=== PATIENT | male | born 1955 | race Caucasian/White ===

== ENCOUNTER 2023-07-27 20:20 | Inpatient (IN) | payer MEDICARE, OTHER, SELFPAY ==
[2023-07-27] VITALS (14 sets, daily range): BP systolic 116–144; BP diastolic 57–113
[2023-07-27] MEDS: CARDIZEM 10 MG IV (12:31)
--- NOTE | 2023-07-27 12:38 | ED.GENMED ---
History of Present Illness
<Dione Toussaint PA-C - Last Filed: 07/27/23 17:00>
General
Chief Complaint: Heart Rate Problem
Source: patient
Exam Limitations: none
Time Seen by Provider: 07/27/23 12:24
Nursing documentation reviewed up to this point in time: agreed with
Travel History
Have you had any contact with someone who has COVID-19?: No
Do you have any symptoms of coronavirus? Fever > 100 degrees, chills, cough, shortness of breath, sore throat, loss of taste or smell, muscle aches, or headache?: No
History of Present Illness
History of Present Illness:
67-year-old male with a past medical history of sleep apnea, A-fib, CAD, hypertension, hyperlipidemia presenting to the emergency department today with palpitations and dizziness that started at around 11 AM today. Patient states that he is
starting to feel the symptoms and look down at her Apple Watch and noticed that his heart rate was around 170. Patient states that he only went into A-fib once to his knowledge around 6 years ago and they were planning for cardioversion however he
converted on his own. Patient states that when he started to feel his symptoms, he took a nitro. He has no chest pain, no shortness of breath. He is not on any anticoagulation but he does take aspirin and clopidogrel. Of note, he had a UroLift
procedure done 3 days ago and as a result is currently off of his clopidogrel and aspirin. He still has hematuria remaining from the surgery. Also has some mild dysuria. Denies any fevers or chills, shortness of breath.
Past History
<Dione Toussaint PA-C - Last Filed: 07/27/23 17:00>
Past History
ED Past Medical History: CAD, HTN, Hypercholesterolemia, [place] (Non-STEMI March 2022) and Other (Chronic hard of hearing, cochlear implants)
ED Past Surgical History: Cardiac (PTCA with stents), Cholecystectomy and Other (Cochlear implant)
Social History
Tobacco: Non-smoker
Alcohol: None
Drug: None
Personal:
Living: with family
Employment: Retired
Family History
Family History: Other (Noncontributory)
Review of Systems
<Dione Toussaint PA-C - Last Filed: 07/27/23 17:00>
Review of Systems
All Other Systems: ROS reviewed and negative except as documented in HPI and ROS
Phy Exam
<Dione Toussaint PA-C - Last Filed: 07/27/23 17:00>
Physical Exam
Physical Exam:
General: Patient is well-appearing in no acute distress
Skin: Warm and dry, no rashes or lesions
Head: Normocephalic, atraumatic
Cardiac: Heart is irregularly irregular, no murmurs, rubs, or gallops
Peripheral Vascular: No longer extremity edema, 2+ DP pulses b/l
Pulm: Normal respiratory effort, no wheezes, rales, or rhonchi
Abdomen: No abdominal tenderness to palpation, no pelvic pain to palpation
Neuro: AAOx3, CN II-XII intact.
Scores
<Dione Toussaint PA-C - Last Filed: 07/27/23 17:00>
[id number] Score for Afib Stroke Risk
Age in Years (65=0, 65-74=1, >/=75=2): 65-74
Sex (Female=+1): Male
Congestive Heart Failure History (Yes=+1): No
Hypertension History (Yes=+1): Yes
Stroke/TIA/Thromboembolism History (Yes=+2): No
Vascular Disease History (Yes=+1): Yes
Diabetes Mellitus (Yes=+1): No
Score: 3
Anticoagulation Recommendations: Recommend anticoagulation (as validated in nonvalvular fib)
PE Wells Score
Symptoms of DVT: No
No alternative diagnosis better explains the illness: No
Tachycardia with pulse > 100: Yes
Immobilization (>=3 days) or surgery within previous 4 weeks: Yes
Prior history of DVT or pulmonary embolism: No
Presence of hemoptysis: No
Presence of malignancy: No
Pulmonary Embolism Risk Score: 3.0
Probability of PE: Pt is moderate risk
Course
<Dione Toussaint PA-C - Last Filed: 07/27/23 17:00>
Orders/Labs/Results
Orders:
Orders
07/27/23
Electrocardiogram (*1) Stat
Comment: DONE MR
07/27/23 11:30
EKG [Electrocardiogram (*1)] Urgent
Reason for Study: Chest Pain
07/27/23 11:31
EKG- Treatment ONCE
07/27/23 12:16
Complete Blood Count/With Diff Urgent
Comprehensive Metabolic Panel Urgent
Magnesium Urgent
TSH Reflex To Free T4 Urgent
Troponin I Urgent
07/27/23 12:25
Diltiazem HCl [Cardizem] 25 mg .ROUTE .STK-MED ONE
07/27/23 12:31
Diltiazem HCl [Cardizem] 10 mg IV NOW STA
07/27/23 12:45
Diltiazem 125 mg/125 ml Nss [Cardizem] 125 mg in 125 ml IV PER PROTOCOL
Initial dose in mg/hr, then titrate:: 5
Titrate to keep:: Heart rate 80-100 bpm
Titrate by mg/hr:: 5 mg/hr
Frequency of titrations (minutes):: 15
Maximum dose in mg/hr:: 15
07/27/23 13:02
Urinalysis Reflex To Culture Urgent
Date Specimen was Collected: 07/27/23
Time Specimen was Collected: 12:50
Urine Microscopic Reflex Cult Urgent
07/28/23 06:00
Echo 2D MMode Color/Doppler IN AM
Reason for Study: afib
Abnormal Lab Results
07/27/23 07/27/23
12:16 13:02
MCV 78.1 L fL
(80.0-94.0)
Absolute Lymphs (auto) 0.8 L 10^3/uL
(1.2-3.4)
Neutrophils % 78.9 H %
(42.2-75.2)
Lymphocytes % 10.6 L %
(20.5-51.1)
BUN 21 H mg/dl
(9-20)
Glucose 115 H mg/dl
(70-99)
Ur Occult Blood Reflex 4+ A
(Negative)
Leukocyte Esterase Rfl Trace A
(Negative)
Urine RBC >100 A /HPF
(0-2)
Urine Bacteria (Reflex) Few A
(Negative)
07/27/23 12:16
07/27/23 12:16
Vital Signs
Initial and Last Documented VS:
Initial Vital Signs
Temp Pulse Resp BP Pulse Ox
98.7 F 131 21 120/104 96
07/27/23 11:36 07/27/23 11:36 07/27/23 11:36 07/27/23 11:36 07/27/23 11:36
Last Documented Vital Signs
Temp Pulse Resp BP Pulse Ox
98.7 F 87 23 133/79 94
07/27/23 11:36 07/27/23 16:45 07/27/23 16:45 07/27/23 16:45 07/27/23 16:45
<Jordy Garcia, DO - Last Filed: 07/27/23 12:58>
Orders/Labs/Results
Orders:
Orders
07/27/23
Electrocardiogram (*1) Stat
Comment: DONE MR
07/27/23 11:30
EKG [Electrocardiogram (*1)] Urgent
Reason for Study: Chest Pain
07/27/23 11:31
EKG- Treatment ONCE
07/27/23 12:16
Complete Blood Count/With Diff Urgent
Comprehensive Metabolic Panel Urgent
Magnesium Urgent
TSH Reflex To Free T4 Urgent
Troponin I Urgent
07/27/23 12:25
Diltiazem HCl [Cardizem] 25 mg .ROUTE .STK-MED ONE
07/27/23 12:31
Diltiazem HCl [Cardizem] 10 mg IV NOW STA
07/27/23 12:45
Diltiazem 125 mg/125 ml Nss [Cardizem] 125 mg in 125 ml IV PER PROTOCOL
Initial dose in mg/hr, then titrate:: 5
Titrate to keep:: Heart rate 80-100 bpm
Titrate by mg/hr:: 5 mg/hr
Frequency of titrations (minutes):: 15
Maximum dose in mg/hr:: 15
07/27/23 13:02
Urinalysis Reflex To Culture Urgent
Date Specimen was Collected: 07/27/23
Time Specimen was Collected: 12:50
Urine Microscopic Reflex Cult Urgent
07/28/23 06:00
Echo 2D MMode Color/Doppler IN AM
Reason for Study: afib
Abnormal Lab Results
07/27/23 07/27/23
12:16 13:02
MCV 78.1 L fL
(80.0-94.0)
Absolute Lymphs (auto) 0.8 L 10^3/uL
(1.2-3.4)
Neutrophils % 78.9 H %
(42.2-75.2)
Lymphocytes % 10.6 L %
(20.5-51.1)
BUN 21 H mg/dl
(9-20)
Glucose 115 H mg/dl
(70-99)
Ur Occult Blood Reflex 4+ A
(Negative)
Leukocyte Esterase Rfl Trace A
(Negative)
Urine RBC >100 A /HPF
(0-2)
Urine Bacteria (Reflex) Few A
(Negative)
07/27/23 12:16
07/27/23 12:16
Vital Signs
Initial and Last Documented VS:
Initial Vital Signs
Temp Pulse Resp BP Pulse Ox
98.7 F 131 21 120/104 96
07/27/23 11:36 07/27/23 11:36 07/27/23 11:36 07/27/23 11:36 07/27/23 11:36
Last Documented Vital Signs
Temp Pulse Resp BP Pulse Ox
98.7 F 87 23 133/79 94
07/27/23 11:36 07/27/23 16:45 07/27/23 16:45 07/27/23 16:45 07/27/23 16:45
<Dione Toussaint PA-C - Last Filed: 07/27/23 17:00>
MDM/Problems Addressed
Differential Diagnosis Includes:
Differentials include A-fib, SVT, atrial flutter, sinus tachycardia, ACS
MDM/Problems Addressed:
palpitations
dizziness
Chronic conditions affecting care: HTN, CAD and Arrhythmia
Acute Exacerbation and/or Progression of Chronic Illness: HTN, CAD and Arrhythmia
<Dione Toussaint PA-C - Last Filed: 07/27/23 17:00>
*Pulse Oximetry
Patient hypoxic: no
*EKG
Interpreted by ED Provider?: Yes
EKG Intrepretation Date: 07/27/23
Interpretation: abnormal
Comparison EKG: changes noted
Heart Rate: 130
Rate: tachycardiac
Rhythm: a-fib (afib vs SVT)
[place]: normal axis
Interval: normal NM interval
Ischemia: non-specific ST changes
*[employer] Interpretation
Rate: tachycardiac
Interpretation: normal
Heart Rate: 104
Rhythm: a-fib
*Critical Care Note
Total Time (30-74mins, 75-104mins- exclusive of procedures): Not Applicable
Data Reviewed
Review of Other/Old Records Reveals: Records (reviewed ER physician documentation from 01/13/2023) and Discharge Summary (reviewed discharge summary from 04/13/2022)
Source: patient
Prescriptions/Medications Considered But Not Given:
considered cardioversion however patient has hematuria from recent surgery and not candidate for anticoagulation
<Dione Toussaint PA-C - Last Filed: 07/27/23 17:00>
Patient Management
Escalation/DeEscalation of care consider admission/obs:
67-year-old male with a past medical history of sleep apnea, A-fib, CAD, hypertension, hyperlipidemia presenting to the emergency department today with palpitations and dizziness that started at around 11 AM today. Patient found to be in rapid afib
upon arrival. Heart rate in the 140s. Patient given dose of diltazem which brought his heart rate down to the low 100s. Patient started on a diltiazem drip, cardiology consulted. Patient not candidate for cardioversion/anticoagulation at this time
due to hematuria and recent surgery. Patient will be admitted under medicine and will be continued to be seen by cardiology consult
ED Attending Note
<Dione Toussaint PA-C - Last Filed: 07/27/23 17:00>
-
Portions of this chart may have been created with voice recognition software.� Occasional wrong word or��sound alike� substitutions may have occurred due to the inherent limitations of voice recognition software.
<Jordy Garcia DO - Last Filed: 07/27/23 12:58>
ED Attending Note
Patient seen and examined by attending physician: Yes
I performed the substantive portion of visit, reviewed & personally made and approve the management plan that is documented in note by myself or MOE.: Yes
ED Attending Note:
Seen with SU examined independently 67-year-old male CAD followed at an outside hospital had 1 prior episode of A-fib not on anticoagulant, recent UroLift procedure, antiplatelets were held, today felt fast heart rate palpitations with his Apple
Watch heart rate was in the 170s been here he looks like he is in A-fib with rapid ventricular spots is having hematuria, he is afebrile, looks well responded to IV Cardizem
Ideally we will try to get him out of the rhythm, as he is modestly symptomatic is not obviously infected, anticoagulation may be problematic with recent urologic procedure
Discharge Plan
Departure
Patient Disposition: Admit
Date of Disposition: 07/27/23
Time of Disposition: 16:43
Presentation/result/management discussed w/ accepting MD/DO: Hospitalist
Patient with high blood pressure during this ER visit?: No
Condition: Fair
Discharge Problem:
Atrial fibrillation, rapid
Prescriptions:
No Action
latanoprost 0.005 % Drops
1 drp BOTH EYES HS
pantoprazole 40 mg Tablet,Delayed Release (Dr/Ec)
40 mg PO DAILY PRN (Reason: heartburn/stomach issues)
rosuvastatin 40 mg Tablet
40 mg PO HS
aspirin 81 mg Tablet,Delayed Release (Dr/Ec)
81 mg PO DAILY
Patient Comments:
07/27/2023, per pt., he stopped taking this med. roughly 6 days ago because of his procedure.
clopidogrel [clopidogrel] 75 mg tablet
75 mg PO DAILY Qty: 90 10RF
Patient Comments:
07/27/2023, per pt., he stopped taking this med. roughly 6 days ago because of his procedure.
losartan 50 mg Tablet
50 mg PO DAILY
metoprolol succinate 50 mg Tablet Extended Release 24 Hr
50 mg PO DAILY
Theragen Tablet
1 tab PO NOON
Patient Comments:
07/27/2023, per pt., he stopped taking this vitamin roughly 6 days ago because of his procedure.
ascorbic acid (vitamin C) [Vitamin C] 500 mg Tablet
500 mg PO NOON
Patient Comments:
07/27/2023, per pt., he stopped taking this vitamin roughly 6 days ago because of his procedure.
tamsulosin 0.4 mg Capsule
0.4 mg PO QPM
vitamin B complex [Super B Complex] Tablet
1 tab PO NOON
Patient Comments:
07/27/2023, per pt., he stopped taking this vitamin roughly 6 days ago because of his procedure.
magnesium 200 mg Tablet
200 mg PO NOON
hydrochlorothiazide 12.5 mg Tablet
12.5 mg PO DAILY
Fish Oil 600 mg capsule
2 cap PO BID
Patient Comments:
07/27/2023, per pt., he stopped taking this vitamin roughly 6 days ago because of his procedure.
Vitamin D3-K2
1 tab PO NOON
nitroglycerin
1 tab PO [id number] PRN (Reason: chest pain)
Patient Comments:
07/27/2023, pt. does not know what strength of nitroglycerin he took today. Could not find in pharmacy fill or ECW.
Interventions
Interventions:
*Risk Screen - Suicide Last Done: 07/27/23 11:39
*General Assessment Last Done: 07/27/23 11:39
*Neglect/Abuse Screening Last Done: 07/27/23 11:39
ED- Fall Risk Assessment Last Done: 07/27/23 12:13
*ED COVID-19 Vaccine History Last Done: 07/27/23 11:39
ED- Cardiac Assessment Last Done: 07/27/23 12:13
ED- Pulmonary Assessment Last Done: 07/27/23 12:13
[2023-07-27 12:42] LABS: % Basophils 0.6 % (0-2); % Eosinophils 1.3 % (0-6); % Immature Granulocytes 0.4 % (0-0.5); % Lymphocytes 10.6 % (20.5-51.1); % Monocytes 8.2 % (1.7-9.3); % Neutrophils 78.9 % (42.2-75.2); Absolute Basophils 0.1 10^3/uL (0-0.2); Absolute Eosinophils 0.1 10^3/uL (0-0.7); Absolute Lymphocytes 0.8 10^3/uL (1.2-3.4); Absolute Monocytes 0.6 10^3/uL (0.1-0.6); Absolute Neutrophils 6.1 10^3/uL (1.4-6.5); Hemoglobin 16.2 g/dL (13.0-18.0); Mean Corpuscular Hgb 28.1 pg (27.0-31.0); Mean Corpuscular Volume 78.1 fL (80.0-94.0); Mean Platelet Volume 10.1 fL (7.4-10.4); Nucleated Red Blood Cells % 0 % (-); Platelet Count 184 10^3/uL (130-400); Red Blood Cell Count 5.76 10^6/uL (4.70-6.10); Red Cell Dist. Width 13.2 % (11.5-14.5); White Blood Cell Count 7.8 10^3/uL (4.8-10.8)
[2023-07-27 12:50] LABS: ALT (SGPT) 29 U/L (0-50); AST (SGOT) 28 U/L (17-59); Albumin 4.3 g/dl (3.5-5.0); Alkaline Phosphatase 108 U/L (38-126); Blood Urea Nitrogen 21 mg/dl (9-20); Calcium 9.2 mg/dl (8.4-10.2); Carbon Dioxide 24 mmol/L (22-30); Chloride 105 mmol/L (98-107); Glucose 115 mg/dl (70-99); Magnesium 1.8 mg/dl (1.6-2.3); Potassium 3.7 mmol/L (3.5-5.1); Sodium 135 mmol/L (135-145); Total Bilirubin 0.9 mg/dl (0.2-1.3); Total Protein 6.8 g/dl (6.3-8.2); eGFR > 60.00
[2023-07-27] MEDS: CARDIZEM 125 IV (12:50)
[2023-07-27 12:57] LABS: Troponin I < 0.012 ng/ml
[2023-07-27 13:18] LABS: TSH Reflex To Free T4 2.28 uIU/ml (0.47-4.68)
[2023-07-27 13:19] LABS: Urine Albumin Trace (Neg - Trace); Urine Bilirubin Negative (Negative); Urine Character Slightly Cloudy (Clear); Urine Color Straw; Urine Glucose Negative (Negative); Urine Ketone Negative (Negative); Urine Leukocyte Trace (Negative); Urine Nitrite Negative (Negative); Urine Occult Blood 4+ (Negative); Urine Specific Gravity 1.005 (<1.030); Urine Urobilinogen Negative (Neg - 1+)
[2023-07-27 13:39] LABS: Urine Squamous Cell 0-2 /LPF (Few)
[2023-07-27 13:40] LABS: Urine Red Blood Cell >100 /HPF (0-2)
[2023-07-27 13:41] LABS: Urine Bacteria Few (Negative)
--- NOTE | 2023-07-27 15:39 | CON.CAR ---
Addendum entered and electronically signed by Abdulaziz Gillette MD 07/27/23 17:18:
I saw and examined the patient.
The ACADEMIC ADVISING DIRECTOR's note was reviewed and I agree with the note.
Comment: Highly symptomatic AFib. Hx of Paroxysmal AFib not on OAT but on DAPT after last PCI 01/2022. [id number] is 3. If no furhter urologic bleeding then I think it is reasonable to start Eliquis w/o antiplatelet meds (has not restarted, has
been on hold since before Urolift procedure done on Tuesday. If no bleeding for 24 hrs on Eliquis the the next day (TuesdayJul 28) we can then proceed to SHARONA/DCCV. His outpt electronics parts sales representative is with [facility].
Original Note:
Consultation
Consultation Request
Date/Time Consultation Requested: 07/27/23 1453
Date/Time Consultation Performed: 07/27/23 1530
Requesting Provider: Dione Toussaint
Performing Provider: Madelaine ROSARIO for Dr. Gillette
Reason for Consultation: AFIB
Medical History
-
Chief Complaint: light-headedness
History of Present Illness:
67 y/o male with hx one episode of AFIB 6 years ago (at either [facility] or [facility]) and he is not on OAC- details unclear- he did not require CV or intervention, CAD with stenting (most recent RCA 2021), HTN, HLD, BPH, sleep apnea (formerly
on CPAP, but lost weight and got nose surgery) who is here for evaluation of AFIB with RVR that per watch and symptoms started around 1030 AM after eating. He developed light-headedness and his watch that normally reads HR in 60's showed HR up to
170's. He took nitro, though he wasn't having any CP or SOB, then called a neighbor who brought him in. He is seen to have AFIB with RVR and is on a diltiazem drip. His electronics parts sales representative is Dr. Sharpe of [facility] cardiology. Importantly, patient
had a UroLift procedure on Tuesday and had hematuria, which has improved. He had some this AM, but most recent urine this afternoon was clear yellow urine. He has been off his DAPT, with plans to resume tomorrow. He is in no distress at the time of
my assessment and is here with his donor recruitment manager.
Past Medical History
Past Medical History: Arrhythmias (single episode AFIB 6 years ago), CAD, HTN, Hypercholesterolemia and Other (sleep apnea, BPH)
Social History
Tobacco: Non-Smoker
Alcohol: Occasional (rarely)
Family History
Family History: Early CAD
Allergies / Home Medications
Allergy/AdvReac Type Severity Reaction Status Date / Time
No Known Allergies Allergy Verified 07/27/23 11:41
Medication Instructions Recorded Confirmed Type
latanoprost 0.005 % eye drops 1 drp BOTH EYES HS Eye condition 03/18/22 07/27/23 History
pantoprazole 40 mg tablet,delayed 40 mg PO DAILY PRN 03/18/22 07/27/23 History
release heartburn/stomach issues
rosuvastatin 40 mg tablet 40 mg PO HS High cholesterol 03/18/22 07/27/23 History
aspirin 81 mg tablet,delayed 81 mg PO DAILY Blood clot 04/12/22 07/27/23 History
release prevention/tx
clopidogrel 75 mg tablet 75 mg PO DAILY #90 tabs 04/13/22 07/27/23 Rx
Fish Oil 2 cap PO BID 07/27/23 07/27/23 History
Vitamin D3-K2 1 tab PO NOON 07/27/23 07/27/23 History
ascorbic acid (vitamin C) 500 mg 500 mg PO NOON 07/27/23 07/27/23 History
tablet (Vitamin C)
hydrochlorothiazide 12.5 mg tablet 12.5 mg PO DAILY 07/27/23 07/27/23 History
losartan 50 mg tablet 50 mg PO DAILY 07/27/23 07/27/23 History
magnesium 200 mg tablet 200 mg PO NOON 07/27/23 07/27/23 History
metoprolol succinate 50 mg 50 mg PO DAILY 07/27/23 07/27/23 History
tablet,extended release 24 hr
nitroglycerin 1 tab PO [id number] PRN chest pain 07/27/23 07/27/23 History
tamsulosin 0.4 mg capsule 0.4 mg PO QPM 07/27/23 07/27/23 History
therapeutic multivitamin 1 tab PO NOON 07/27/23 07/27/23 History
vitamin B complex 1 tab PO NOON 07/27/23 07/27/23 History
Review of Systems
-
History Source: Patient
All other systems: Negative unless noted
Neurological: Other (light-headedness)
Physical Exam
Vital Signs
Temp Pulse Resp BP Pulse Ox
98.7 F 109 17 122/75 96
07/27/23 11:36 07/27/23 15:30 07/27/23 15:30 07/27/23 15:15 07/27/23 15:30
Lab Results
07/27/23 12:16
07/27/23 12:16
Troponin I < 0.012 ng/ml 07/27/23 12:16
Physical Exam
General: Well Developed, Well Nourished and No Apparent Distress
HEENT: Normocephalic and Anicteric
Respiratory: Clear and Non Labored Respirations
Cardiac: Irregular Rhythm
Musculoskeletal: No Edema
Skin: Warm and Dry
Neuro: AO x 3
Psych: Calm
Impression / Plan
-
AFIB with RVR: type unknown, though sounds like it started today at 1030
-rates better on diltiazem drip- continue- this requires intensive monitoring
-reports hx 6 years ago at OSH, not requiring intervention and he was not on OAC, but details unclear
-[id number] score is 3 for HTN, age, CAD. Recommend Eliquis 5 mg PO BID once clear that he is not bleeding- likely start tomorrow if no more hematuria. Then if no bleeding on Eliquis tomorrow and if still in AFIB, consider SHARONA/CV on Tuesday.
-TSH normal
-update echo this admit
-follow telemetry
CAD with history of multiple stents:
-most recent RCA 2021
-on DAPT as OP, held for procedure as noted
-now with AFIB, would transition to Eliquis as above
HTN:
-monitor with diltiazem drip
Hx sleep apnea:
-he has been off CPAP since losing weight and getting surgery
-should have reassessment as OP
BPH:
-s/p UroLift Tuesday
-AP/OAC as above
Data Reviewed
-
EKG: Tracing Personally Visualized and interpreted (AFIB with RVR)
Medical Tests (Nuc Med, Echo etc): Report Reviewed by me (04/13/22: Normal biventricular size and systolic function without regional wall motion abnormality. Mild concentric left ventricular hypertrophy. No significant valvular disease. ) and
Other (cath 04/12/22: Right dominant circulation with patent stents in the circumflex leading into the second obtuse marginal, mild proximal LAD disease and a critical, 95% in-stent restenosis lesion in the ostial RCA leading into a severely
tortuous proximal right coronary, status post successful PCI)
Labs: Labs Reviewed by me
--- NOTE | 2023-07-27 18:33 | HPS.HSE ---
Family Physician
-
Family Physician: Bernie Obrien
Chief Complaint
-
palpiatations
History of Present Illness
67-year-old male past medical history of atrial fibrillation, CAD with stents, hypertension, sleep apnea, hyperlipidemia, hearing loss, prediabetic presenting with palpitations and dizziness starting around 11 AM today. He looked at his Apple Watch
and noticed that his heart rate was around 170. To his knowledge she only went into A-fib once around 6 years ago and they were planning cardioversion at that time however he converted on his own. Patient took a nitro when he started having
symptoms. He denies any chest pain or shortness of breath. He is not on anticoagulation but does normally take aspirin and Plavix.
He had a UroLift procedure 3 days ago and therefore is off of aspirin and clopidogrel which was supposed to be restarted a few days after surgery. He denies any fevers or chills or abdominal pain. He was having blood in his urine after the
surgery even today this has now resolved.
Rarely drinks alcohol. Denies smoking.
Medical History
Past Medical History
Past Medical History: Reports Other (atrial fibrillation, CAD with stents, hypertension, sleep apnea, hyperlipidemia, hearing loss, prediabetic)
Past Surgical History: Reports Other (Cardiac (PTCA with stents), Cholecystectomy and Other (Cochlear implant))
Social History
Tobacco: Non-smoker
Alcohol: Occasional
Drug: None
Family History
Family History: Not pertinent
Allergies / Home Medications
Allergies reflects when Allergies were last updated in [email or web address].
Home Medications with original date entered in [email or web address]
Allergy/Medication List:
Allergies
Allergy/AdvReac Type Severity Reaction Status Date / Time
No Known Allergies Allergy Verified 07/27/23 11:41
Home Medications
latanoprost 0.005 % eye drops 1 drp BOTH EYES HS Eye condition 03/18/22
pantoprazole 40 mg tablet,delayed release 40 mg PO DAILY PRN heartburn/stomach issues 03/18/22
rosuvastatin 40 mg tablet 40 mg PO HS High cholesterol 03/18/22
aspirin 81 mg tablet,delayed release 81 mg PO DAILY Blood clot prevention/tx 04/12/22
clopidogrel 75 mg tablet 75 mg PO DAILY #90 tabs 04/13/22
Fish Oil 2 cap PO BID 07/27/23
Vitamin D3-K2 1 tab PO NOON 07/27/23
ascorbic acid (vitamin C) 500 mg tablet (Vitamin C) 500 mg PO NOON 07/27/23
hydrochlorothiazide 12.5 mg tablet 12.5 mg PO DAILY 07/27/23
losartan 50 mg tablet 50 mg PO DAILY 07/27/23
magnesium 200 mg tablet 200 mg PO NOON 07/27/23
metoprolol succinate 50 mg tablet,extended release 24 hr 50 mg PO DAILY 07/27/23
nitroglycerin 1 tab PO [id number] PRN chest pain 07/27/23
tamsulosin 0.4 mg capsule 0.4 mg PO QPM 07/27/23
therapeutic multivitamin 1 tab PO NOON 07/27/23
vitamin B complex 1 tab PO NOON 07/27/23
Review of Systems
-
History Source: Patient
A 12 point ROS was completed and negative except as noted: Yes
Constitutional: Reports No Symptoms
EENT: Reports No Symptoms
Respiratory: Reports No Symptoms
Cardiac: Reports See HPI
Abdomen/GI: Reports No Symptoms
: Reports No Symptoms
Musculoskeletal: Reports No Symptoms
Skin: Reports No Symptoms
Neurological: Reports No Symptoms
Endocrine: Reports No Symptoms
Hematologic/Lymphatic: Reports No Symptoms
Psych: Reports No Symptoms
Physical Exam
Vital Signs
Vital Signs
Temp Pulse Resp BP Pulse Ox
98.7 F 92 11 135/87 95
07/27/23 11:36 07/27/23 18:15 07/27/23 18:15 07/27/23 18:15 07/27/23 18:15
Physical Exam
General: Well Developed, Well Nourished and No Apparent Distress
HEENT: NormoCephalic, Moist mucous membranes and Atraumatic
Respiratory: Clear
Cardiac: S1/S2 and Regular Rhythm; No Murmur or Rub
GI: Soft, Non Tender, Non Distended and Normal Bowel Sounds; No Organomegaly
Rectal: Deferred by Provider
Musculoskeletal: No Clubbing, No Cyanosis and No Edema
Skin: No Rash
Neuro: Nonfocal/grossly intact
Laboratory Results
-
07/27/23 12:16
07/27/23 12:16
Laboratory Results
Total Bilirubin 0.9 mg/dl (0.2-1.3) 07/27/23 12:16
AST 28 U/L (17-59) 07/27/23 12:16
ALT 29 U/L (0-50) 07/27/23 12:16
Alkaline Phosphatase 108 U/L (38-126) 07/27/23 12:16
Troponin I < 0.012 ng/ml 07/27/23 12:16
Data Reviewed
-
Lab Data: Labs Reviewed by me
Old Records: Reviewed
Impression/Plan
-
IMPRESSION:
PLAN:
# New recurrence of atrial fibrillation with RVR
-[id number] of 3
-Cardizem drip started
-Cardiology to start Eliquis tomorrow, and possibly consider SHARONA/cardioversion on Tuesday if no recurrent hematuria
-Continue metoprolol
CAD with history of stents
-Hold aspirin and Plavix
BPH
-Status post UroLift procedure 3 days ago
-Hematuria resolved
-Continue tamsulosin
Essential hypertension
-Continue hydrochlorothiazide, losartan
Sleep apnea
Prediabetes
Hyperlipidemia
-Continue statin
Hearing loss s/p cochlear implants
GERD
-Continue Protonix
Full code
DVT prophylaxis�SCDs
Regular diet
[2023-07-28] VITALS (20 sets, daily range): BP systolic 95–144; BP diastolic 56–94; BMI 24.0; BMI 23.7
[2023-07-28] MEDS: MELATONIN 5 MG PO (00:10)
[2023-07-28] MEDS: CRESTOR 40 MG PO ×2 (00:57→21:39)
[2023-07-28] MEDS: XALATAN OPHTHALMIC SOLUTION 1 DROP BOTH EYES ×2 (00:58→21:39)
[2023-07-28 06:11] LABS: % Basophils 0.7 % (0-2); % Eosinophils 2.3 % (0-6); % Immature Granulocytes 0.4 % (0-0.5); % Lymphocytes 14.2 % (20.5-51.1); % Neutrophils 74.4 % (42.2-75.2); Absolute Basophils 0.1 10^3/uL (0-0.2); Absolute Eosinophils 0.2 10^3/uL (0-0.7); Absolute Monocytes 0.6 10^3/uL (0.1-0.6); Absolute Neutrophils 5.2 10^3/uL (1.4-6.5); Hematocrit 43.6 % (39.0-52.0); Hemoglobin 15.8 g/dL (13.0-18.0); Mean Corp Hgb Conc. 36.2 g/dL (33.0-37.0); Mean Corpuscular Hgb 27.9 pg (27.0-31.0); Mean Platelet Volume 10.3 fL (7.4-10.4); Nucleated Red Blood Cells % 0 % (-); Platelet Count 178 10^3/uL (130-400); Red Blood Cell Count 5.66 10^6/uL (4.70-6.10); Red Cell Dist. Width 13.4 % (11.5-14.5)
[2023-07-28 06:34] LABS: ALT (SGPT) 27 U/L (0-50); AST (SGOT) 25 U/L (17-59); Albumin 3.8 g/dl (3.5-5.0); Alkaline Phosphatase 106 U/L (38-126); Blood Urea Nitrogen 19 mg/dl (9-20); Calcium 9.2 mg/dl (8.4-10.2); Carbon Dioxide 28 mmol/L (22-30); Chloride 103 mmol/L (98-107); Estimated Creatinine Clearance 69 ml/min; Glucose 104 mg/dl (70-99); Potassium 3.6 mmol/L (3.5-5.1); Sodium 134 mmol/L (135-145); Total Bilirubin 1.1 mg/dl (0.2-1.3); Total Protein 6.2 g/dl (6.3-8.2); eGFR > 60.00
--- NOTE | 2023-07-28 09:09 | W.PN.CD ---
Addendum entered and electronically signed by Will Acosta MD 07/28/23 16:19:
Increase diltiazem to 360 mg daily, his urine is now clear and he would like to start Eliquis tonight. I discussed the risk and benefits with him of starting Eliquis including bleeding and he is agreeable to this. We will start Eliquis 5 mg twice
daily tonight. Additionally, explained the risks and benefits of holding off on cardioversion given recent procedure and hematuria. I discussed with him my main concern for DCCV is that if he were to develop hematuria after a few doses, of
Eliquis, we would have to stop Eliquis, and this would put him at a higher risk of potential stroke. He understands and will contact his outpatient coupon clerk for SHARONA and cardioversion next week.
Original Note:
Today's Communication / Plan
-
stop dilt gtt and start dilt 240 mg
stop metoprolol
If HR and BP stable then OK to d/c this afternoon with f/u with outpt coupon clerk next week and OAC w/ Eliquis and stop DAPT once hematuria clears.
Impression / Plan
-
67 y/o male with hx one episode of AFIB 6 years ago (at either [facility] or [place]) and he is not on OAC- details unclear- he did not require CV or intervention, CAD with stenting (most recent RCA 2021), HTN, HLD, BPH, sleep apnea (formerly
on CPAP, but lost weight and got nose surgery) who is here for evaluation of AFIB with RVR. He is currently rate controlled on dilt gtt. He continues to have hematuria and his HRs are currently controlled and he is symptom free. I discussed with
him starting Eliquis and stopping DAPT when his hematuria is clear. He has follow up with outpt coupon clerk next week. We discussed possible d/c today if tolerating PO and HRs are controlled and he is agreeable with this as he has close follow
up.
AFIB with RVR: type unknown, likely paroxysmal, though sounds like it started yesterday at 1030
-rates better on diltiazem drip- continue- this requires intensive monitoring
-reports hx 6 years ago at OSH, not requiring intervention and he was not on OAC, but details unclear
-[id number] score is 3 for HTN, age, CAD. Recommend Eliquis 5 mg PO BID once clear that he is not bleeding
-after discussion with patient, d/c on dilt 240 mg daily Eliquis to start once hematuria clears, he has follow up next week with coupon clerk
- stop metoprolol
-TSH normal
-TTE pendindg
-follow telemetry
CAD with history of multiple stents:
-most recent RCA 2021
-on DAPT as OP, held for procedure as noted
-now with AFIB, would transition to Eliquis as above
HTN:
-monitor with diltiazem drip
- stop metoprolol
- cont losartan/hctz
Hx sleep apnea:
-he has been off CPAP since losing weight and getting surgery
-should have reassessment as OP
BPH:
-s/p UroLift Tuesday
-AP/OAC as above
Physical Exam
Vital Signs/Labs
Vital Signs
Temp Pulse Resp BP Pulse Ox
98.7 F 89 16 116/70 94
07/27/23 11:36 07/28/23 08:30 07/28/23 08:30 07/28/23 08:00 07/27/23 22:00
07/27/23 07/28/23 07/29/23
06:59 06:59 06:59
Actual Weight 157 lb 8 oz
07/28/23 05:28
07/28/23 05:28
Magnesium 1.8 mg/dl (1.6-2.3) 07/27/23 12:16
LAB Results
07/27/23
12:16
Troponin I < 0.012
Physical Exam
Constitutional: No acute distress
EENT: Anicteric
Cardiovascular: Rhythm/rate is irregular and Pedal edema present
Respiratory: Respiratory effort normal and Lungs clear to auscul.
GI: Soft
Neuro/Psych: AO x 3
Data Reviewed
-
Date of Service: July 28, 2023
EKG: Tracing Personally Visualized and interpreted
Echo: Tracing Personally Visualized and interpreted
Labs: Labs Reviewed by me
[2023-07-28] MEDS: COZAAR 50 MG PO (09:30)
[2023-07-28] MEDS: ORETIC 12.5 MG PO ×2 (09:31→09:32)
[2023-07-28] MEDS: CARDIZEM CD 240 MG PO (09:32)
[2023-07-28] MEDS: VITAMIN C 500 MG PO (13:56)
[2023-07-28] MEDS: THERAGRAN 1 TABLET PO (14:00)
[2023-07-28] MEDS: MAGNESIUM OXIDE 250 MG PO (14:00)
[2023-07-28] MEDS: B COMPLEX w/VITAMIN C 1 CAPLET PO (14:02)
--- NOTE | 2023-07-28 17:21 | W.PN.HOSP.TC ---
Today's Communication/Plan
-
Transition off IV Cardizem to diltiazem and monitor rate and rhythm.
Assessment / Plan
Assessment / Plan
Impression:
Paroxysmal atrial fibrillation with rapid ventricular response.
CAD with prior history of multiple stents on DAPT prior to presentation.
Essential hypertension
Sleep apnea.
BPH with recent UroLift
Plan:
Atrial fibrillation with rapid ventricular response, paroxysmal and symptomatic.
TSH within normal limit
Rate improved with IV Cardizem.
Transitioned to diltiazem 240 with suboptimal rate control while exerting. Rate will be increased to 360 mg. Continue monitoring.
CV score 3. Plan is for anticoagulation with Eliquis once post UroLift hematuria resolves and urine clears.
Eventually plan to follow-up with outpatient cardiology with consideration of DCCV once established on Eliquis with no evidence of hematuria.
CAD
Prior history of stents.
On DAPT recently held for urologic procedure.
Echocardiogram with preserved biventricular function LVEF 65 to 70%, mild LVH no significant valvular abnormalities.
BPH
-Status post UroLift procedure 3 days ago
-Hematuria resolved
-Continue tamsulosin
Essential hypertension
-Continue hydrochlorothiazide, losartan
Sleep apnea
Prediabetes
Hyperlipidemia
-Continue statin
Hearing loss s/p cochlear implants
GERD
-Continue Protonix
Anticipated Discharge: 24 - 48 hours
Subjective/Interval History
-
Date of Service: July 28, 2023
Objective Data
-
Labs:
Laboratory Results
07/28/23
05:28
WBC 7.0
Hgb 15.8
Hct 43.6
Plt Count 178
Sodium 134 L
Potassium 3.6
Chloride 103
Carbon Dioxide 28
BUN 19
Creatinine 1.0
Glucose 104 H
Calcium 9.2
Total Bilirubin 1.1
AST 25
ALT 27
Alkaline Phosphatase 106
Vital Signs:
Vital Signs
Temp Pulse Resp BP Pulse Ox
98.2 F 119 21 144/94 94
07/28/23 12:30 07/28/23 17:01 07/28/23 17:01 07/28/23 17:01 07/27/23 22:00
I&O
07/27/23 07/28/23 07/29/23
06:59 06:59 06:59
Intake Total 55 / 55
Output Total 500 / 500
Balance -445 / -445
Physical Exam
-
General: Well Developed and No Apparent Distress
HEENT: Normocephalic, Atraumatic and Moist Mucous Membranes
Respiratory: Clear to Auscultation
Cardiac: Regular Rhythm and S1/S2; Negative Murmur, Rub or Gallop
GI: Soft, Nontender, Nondistended and Normal Bowel Sounds; Negative Organomegaly
Rectal: Deferred by Provider
Musculoskeletal: No Clubbing, No Cyanosis and No Edema
Skin: Negative Rash
Neuro: Nonfocal/Grossly Intact
--- NOTE | 2023-07-28 19:24 | PTCARENOTE ---
Received patient from ED via stretcher. AAOx3, ambulated to bed without assistance. Assessed and oriented to room. sliver lapper reading Afib. Call arana in close reach.
[2023-07-28] MEDS: ELIQUIS 5 MG PO (20:06)
[2023-07-28] MEDS: FLOMAX 0.400000000000000022 MG PO (20:06)
--- NOTE | 2023-07-29 01:57 | PTCARENOTE ---
1954:
0: Pt up and moving around in room/ eating in bed. Pt a fib on telemetry rates 110-160s. Pt then converted to NSR, confirmed with EKG.
[2023-07-29 03:38] VITALS: BP 97/56
[2023-07-29 07:35] VITALS: BP 96/54
--- NOTE | 2023-07-29 08:59 | W.PN.CD ---
Today's Communication / Plan
-
stop metoprolol
cont dilt 360 and eliquis 5 mg
f/u with outpt wire bound box machine operator next week
Impression / Plan
-
67 y/o male with hx one episode of AFIB 6 years ago (at either [facility] or [place]) and he is not on OAC- details unclear- he did not require CV or intervention, CAD with stenting (most recent RCA 2021), HTN, HLD, BPH, sleep apnea (formerly
on CPAP, but lost weight and got nose surgery) who is here for evaluation of AFIB with RVR. He is currently rate controlled on dilt gtt. He continues to have hematuria and his HRs are currently controlled and he is symptom free. I discussed with
him starting Eliquis and stopping DAPT when his hematuria is clear. He has follow up with outpt wire bound box machine operator next week. We discussed possible d/c today if tolerating PO and HRs are controlled and he is agreeable with this as he has close follow
up.
paroxysmal AF now SR s/p spontaneous CV
-reports hx 6 years ago at OSH, not requiring intervention and he was not on OAC, but details unclear
-[id number] score is 3 for HTN, age, CAD. Recommend Eliquis 5 mg PO BID once clear that he is not bleeding
-cont dilt 360 now in SR, has f/u with outpt wire bound box machine operator this week, stop metop
- eliquis 5 mg bid
-TTE below
-follow telemetry
CAD with history of multiple stents:
-most recent RCA 2021
-on DAPT as OP, held for procedure as noted
-now with AFIB, would transition to Eliquis as above
HTN:
- stop metoprolol
- cont losartan/hctz
Hx sleep apnea:
-he has been off CPAP since losing weight and getting surgery
-should have reassessment as OP
BPH:
-s/p UroLift Tuesday
-AP/OAC as above
Physical Exam
Vital Signs/Labs
Vital Signs
Temp Pulse Resp BP Pulse Ox
98.0 F 88 18 96/54 94
07/29/23 07:35 07/29/23 07:35 07/29/23 07:35 07/29/23 07:35 07/29/23 07:35
07/28/23 07/29/23 07/30/23
06:59 06:59 06:59
Actual Weight 157 lb 8 oz 155 lb 12.8 oz
07/28/23 05:28
07/28/23 05:28
Magnesium 1.8 mg/dl (1.6-2.3) 07/27/23 12:16
LAB Results
07/27/23
12:16
Troponin I < 0.012
Physical Exam
Constitutional: No acute distress
EENT: Anicteric
Cardiovascular: Rhythm & rate is regular and Pedal edema is absent
Respiratory: Respiratory effort normal and Lungs clear to auscul.
GI: Soft
Neuro/Psych: AO x 3
Data Reviewed
-
Date of Service: July 29, 2023
EKG: Tracing Personally Visualized and interpreted
Echo: Tracing Personally Visualized and interpreted
Labs: Labs Reviewed by me
[2023-07-29] MEDS: FLUSH (NSS) 1 FLUSH IV (09:08)
[2023-07-29] MEDS: ELIQUIS 5 MG PO (09:08)
[2023-07-29] MEDS: COZAAR 50 MG PO (09:08)
[2023-07-29] MEDS: CARDIZEM CD 360 MG PO (09:08)
[2023-07-29 11:08] VITALS: BP 101/64
--- NOTE | 2023-07-29 11:50 | W.DS.TRANS ---
Addendum entered and electronically signed by Jann Heaton MD 07/29/23 14:16:
Due to insurance coverage, Xarelto replaced Eliquis for anticoagulation.
Original Note:
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
-
Discharge Instructions:
Discharge Diagnosis/Procedures Afib
Diet Regular
Instructions:
Stand-Alone Forms:
Changes to Home Medications: Yes
Discharge Medications:
DC Medications w/original date entered in [employer]
latanoprost 0.005 % eye drops 1 drp BOTH EYES HS Eye condition 03/18/22
pantoprazole 40 mg tablet,delayed release 40 mg PO DAILY PRN heartburn/stomach issues 03/18/22
rosuvastatin 40 mg tablet 40 mg PO HS High cholesterol 03/18/22
aspirin 81 mg tablet,delayed release 81 mg PO DAILY Blood clot prevention/tx 04/12/22
Fish Oil 2 cap PO BID Supplement 07/27/23
Vitamin D3-K2 1 tab PO NOON Supplement 07/27/23
ascorbic acid (vitamin C) 500 mg tablet (Vitamin C) 500 mg PO NOON Supplement 07/27/23
hydrochlorothiazide 12.5 mg tablet 12.5 mg PO DAILY Blood Pressure 07/27/23
losartan 50 mg tablet 50 mg PO DAILY High Cholesterol 07/27/23
magnesium 200 mg tablet 200 mg PO NOON Supplement 07/27/23
nitroglycerin 1 tab PO [id number] PRN chest pain 07/27/23
tamsulosin 0.4 mg capsule 0.4 mg PO QPM Urinary Issue 07/27/23
therapeutic multivitamin 1 tab PO NOON Supplement 07/27/23
vitamin B complex 1 tab PO NOON Supplement 07/27/23
clopidogrel 75 mg tablet 75 mg PO DAILY Blood Clot Prevention/Tx 07/28/23
apixaban 5 mg tablet (Eliquis) 5 mg PO BID #60 tabs 07/29/23
diltiazem HCl 180 mg capsule,extended release 24 hr 360 mg PO DAILY #90 caps 07/29/23
Home Medication Changes
Metoprolol discontinued
Diltiazem and Eliquis initiated
Pending Results: No
[2023-07-29] MEDS: THERAGRAN 1 TABLET PO (13:14)
[2023-07-29] MEDS: B COMPLEX w/VITAMIN C 1 CAPLET PO (13:14)
[2023-07-29] MEDS: MAGNESIUM OXIDE 250 MG PO (13:14)
[2023-07-29] MEDS: VITAMIN C 500 MG PO (13:14)
--- NOTE | 2023-07-29 13:29 | CM ---
CM following re: d/c planning
Chart reviewed
CM met with the patient at bedside; IA completed
Pt states he and his S.O. reside in a [facility] with no JENIFER however full flight to the 2nd floor
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
Pt has no past hx of VN/SNF/DME
Pt does have prescription coverage and rx's are filled at [facility]
Pt PCP-Lata Obrien
Pt has been cleared medically for d/c and has no needs
IMM was reviewed and copy provided
Pt states his S.O. will transport home at time of d/c
PLAN; d/c home no needs
[2023-07-29 15:15] VITALS: BP 112/66
--- NOTE | 2023-07-29 15:47 | PTCARENOTE ---
Rn Flow joint machine operator-Patient cleared for d/c. Clarified with Dr. Barrera that patient should resume asa 81 mg, and fish oil tomorrow. Spoke with [facility] about new order for Xeralto. Patient states that he is agreeable for 344.75-as he has a
deductible of 276.73 with his insurance.
== END 2023-07-29 15:57 | disposition home or self-care (01) | DRG 310 ==
LOC: 4 EAST ACU 20:20
PROVIDERS: Physician Assistant; ADMITTING PHYSICIAN Hospitalist; ATTENDING PHYSICIAN Internal Medicine; CONSULT PHYSICIAN Internal Medicine Cardiovascular Disease; EMERGENCY PHYSICIAN Emergency Medicine; FAMILY PHYSICIAN Nurse Practitioner Family
DX: I48.0 Paroxysmal atrial fibrillation (principal); I25.10 Atherosclerotic heart disease of native coronary artery without angina pectoris; I10 Essential (primary) hypertension; K21.9 Gastro-esophageal reflux disease without esophagitis; G47.30 Sleep apnea, unspecified; R73.03 Prediabetes; R31.9 Hematuria, unspecified; E78.00 Pure hypercholesterolemia, unspecified; Z96.21 Cochlear implant status; Z79.02 Long term (current) use of antithrombotics/antiplatelets; Z79.82 Long term (current) use of aspirin; I25.2 Old myocardial infarction
CPT/HCPCS: 80053; 81003; 81015; 83735; 84443; 84484; 85025; 93005; 93306; 96365; 96366; 99285

== ENCOUNTER → 2024-09-26 09:13 | Outpatient (REF) | payer MEDICARE, OTHER, SELFPAY ==
[2024-09-26 13:19] LABS: Platelet Count 166 10^3/uL (130-400)
[2024-09-26 13:45] LABS: ALT (SGPT) 56 U/L (0-50); AST (SGOT) 29 U/L (17-59); Albumin 3.9 g/dl (3.5-5.0); Alkaline Phosphatase 135 U/L (38-126); Direct Bilirubin 0.1 mg/dl (0.0-0.4); GGTP 84 U/L (15-73); Total Bilirubin 0.9 mg/dl (0.2-1.3); Total Protein 6.1 g/dl (6.3-8.2)
[2024-09-27 15:10] LABS: Hepatitis B Surface Antigen Negative (Negative)
[2024-09-27 15:26] LABS: Hepatitis C Antibody Negative (Negative)
[2024-09-27 16:37] LABS: Hepatitis B Surface Antibody Indeterminate
[2024-09-29 05:34] LABS: Mitochondrial M2 Ab, IgG 5.5 Units (0.0-24.9)
== END ==
LOC: HWRAD 09:13
PROVIDERS: ATTENDING PHYSICIAN Internal Medicine Gastroenterology; FAMILY PHYSICIAN Nurse Practitioner Family
DX: R74.8 Abnormal levels of other serum enzymes (principal)
CPT/HCPCS: 36415; 76700; 80076; 82977; 85049; 86381; 86706; 86803; 87340

== ENCOUNTER → 2025-03-16 09:08 | Outpatient (REF) | payer MEDICARE, OTHER, SELFPAY | LOC: MRI 3T 09:08 | PROVIDERS: ATTENDING PHYSICIAN Nurse Practitioner Family | DX: S32.010G Wedge compression fracture of first lumbar vertebra, subsequent encounter for fracture with delayed healing (principal) | CPT/HCPCS: 72148 ==